=== PATIENT | male | born 1970 | race Hispanic/Latino ===

== ENCOUNTER 2017-12-29 12:50 | Observation (INO) | payer BC, OTHER ==
[2017-12-29] MEDS ORDERED: Sodium Chloride 0.9% 1,000 ML IV ONE (14:14)
[2017-12-29] MEDS ORDERED: Sodium Chloride 0.9% 1,000 ML ONE (14:22)
[2017-12-29 14:28] LABS: BASO % 0.5 % (0.0-2.0); EOS # 0.2 K/uL (0.0-0.7); EOS % 2.7 % (0.0-4.0); HEMOGLOBIN 15.3 g/dL (12.0-18.0); LYMPH # 1.4 K/uL (1.0-4.3); LYMPH % 23.3 % (20.0-40.0); MEAN CELL VOLUME 83.9 fL (80.0-94.0); MEAN CORPUSCULAR HEMOGLOBIN 29.6 pg (27.0-31.0); MEAN CORPUSCULAR HGB CONC 35.3 g/dL (33.0-37.0); MEAN PLATELET VOLUME 7.9 fL (7.2-11.7); MONO # 0.5 K/uL (0.0-0.8); MONO % 7.9 % (0.0-10.0); NEUT # 4.1 K/uL (1.8-7.0); NEUT % 65.6 % (50.0-75.0); RBC 5.18 Mil/uL (4.40-5.90); RED CELL DISTRIBUTION WIDTH 12.1 % (11.5-14.5); WHITE BLOOD COUNT 6.2 K/uL (4.8-10.8)
[2017-12-29 14:32] LABS: PROTHROMBIN TIME 11.2 SECONDS (9.7-12.2)
--- NOTE | 2017-12-29 14:33 | C.PDOC ---
History Of Present Illness 47 y/o male, w/PMhx of acid reflux, presents to the ER complaining of abdominal pain which has been present since last night. Patient states that the pain is localized to the RLQ. Patient reports that he was seen in a urgent care center in the morning and he was sent to the ER for evaluation. Denies having fever, chills, nausea, vomiting, dysuria, and hematuria.Of note, patient states that he does not want any medications for pain. Time Seen by Provider: 12/29/17 14:02 Chief Complaint (Nursing): Abdominal Pain History Per: Patient History/Exam Limitations: no limitations Onset/Duration Of Symptoms: Days Current Symptoms Are (Timing): Still Present Severity: Moderate Location Of Pain/Discomfort: RLQ Past Medical History Reviewed: Historical Data, Nursing Documentation, Vital Signs Vital Signs: Last Vital Signs Temp 98.2 F 12/29/17 13:21 Pulse 77 12/29/17 13:21 Resp 20 12/29/17 13:21 BP 116/71 12/29/17 13:21 Pulse Ox 99 12/29/17 13:21 - Medical History PMH: GERD Surgical History: No Surg Hx Family History: States: No Known Family Hx - Social History Hx Alcohol Use: Yes Hx Substance Use: No - Immunization History Hx Tetanus Toxoid Vaccination: No Hx Influenza Vaccination: No Hx Pneumococcal Vaccination: No Review Of Systems Except As Marked, All Systems Reviewed And Found Negative. Constitutional: Negative for: Fever, Chills Gastrointestinal: Positive for: Abdominal Pain. Negative for: Nausea, Vomiting, Diarrhea Genitourinary: Negative for: Dysuria, Hematuria Physical Exam - Physical Exam Appears: Non-toxic, No Acute Distress Skin: Normal Color, Warm, Dry Head: Atraumatic, Normacephalic Eye(s): bilateral: Normal Inspection Nose: Normal Oral Mucosa: Moist Neck: Supple Chest: Symmetrical Cardiovascular: Rhythm Regular Respiratory: Normal Breath Sounds, No Rales, No Rhonchi, No Wheezing Gastrointestinal/Abdominal: Soft, Tenderness (mild RLQ tenderness), No Guarding, No Rebound Neurological/Psych: Oriented x3, Normal Speech ED Course And Treatment - Laboratory Results Result Diagrams: 12/29/17 14:20 12/29/17 14:20 O2 Sat by Pulse Oximetry: 99 (RA) Pulse Ox Interpretation: Normal - CT Scan/US CT-Abd & Pelv. Other Rad Studies (CT/US): Read By Radiologist, Radiology Report Reviewed CT/US Interpretation: Date of service: 12/29/2017. PROCEDURE: CT Abdomen and Pelvis with contrast. HISTORY: rlq pain. COMPARISON: Images from CT of the abdomen and pelvis with IV contrast performed 03/22/11. TECHNIQUE: Contrast dose: 100 cc Visipaque 320. Radiation dose: Total exam DLP = 751.92 mGy-cm. This CT exam was performed using one or more of the following dose reduction techniques: Automated exposure control, adjustment of the mA and/or kV according to patient size, and/or use of iterative reconstruction technique. FINDINGS: LOWER THORAX: Mild atelectasis/infiltrate, lingula. Subsegmental atelectasis by lateral lower lobes. No visible pleural effusion or pneumothorax. LIVER: Unremarkable. GALLBLADDER AND BILE DUCTS: Unremarkable. PANCREAS: Unremarkable. SPLEEN: Unremarkable. ADRENALS: Unremarkable. KIDNEYS AND URETERS: The kidneys enhance symmetrically. No hydronephrosis or obstructing calculus identified. VASCULATURE: No aortic aneurysm. No atherosclerotic clark cification or mural plaque present. BOWEL: Stomach is nondistended. Lack of oral contrast limits evaluation for bowel pathology. Bowel loops appear within normal limits of caliber without evidence of obstruction. Moderate constipation. APPENDIX: The appendix is not identified. No secondary signs of acute appendicitis. PERITONEUM: No significant free fluid. No definite free air. LYMPH NODES: No bulky adenopathy identified. BLADDER: Urinary bladder appears distended. Otherwise unremarkable. REPRODUCTIVE: Unremarkable. BONES: Degenerative changes of the spine. OTHER FINDINGS: None. IMPRESSION: The appendix is not identified. No secondary signs of acute appendicitis iden tified. Correlate clinically. Moderate constipation. Distended urinary bladder, otherwise unremarkable. Mild atelectasis/infiltrate, lingula. Subsegmental atelectasis by lateral lower lobes. Medical Decision Making Medical Decision Making: ro appendciits Plan: --Labs --UA --CT-Abd & Pelv. --IV Fluids Patient states that he does not want any medications for pain. ct cannot visualize appendix case discussed with dr pedersen. accpets for obs. Disposition - Disposition Disposition: HOSPITALIZED Disposition Time: 18:00 Condition: STABLE - Clinical Impression Clinical Impression: Abdominal pain - Scribe Statement The provider has reviewed the documentation as recorded by the Scribe Summen Justin Provider Attestation: All medical record entries made by the Mojgan were at my direction and personally dictated by me. I have reviewed the chart and agree that the record accurately reflects my personal performance of the history, physical exam, medical decision making, and the department course for this patient. I have also personally directed, reviewed, and agree with the discharge instructions and disposition. Decision To Admit - Pt Status Changed To: Hospital Disposition Of: Observation - . Bed Request Type: Regular Admitting Physician: Maxim Houser Patient Diagnosis: Abdominal pain
[2017-12-29 14:36] LABS: SQUAMOUS EPITHIAL < 1 /hpf (0-5); URINE BACTERIA RARE (<OCC); URINE BILIRUBIN NEGATIVE (NEGATIVE); URINE BLOOD NEGATIVE (NEGATIVE); URINE CLARITY Hazy (Clear); URINE COLOR Yellow (YELLOW); URINE GLUCOSE (UA) NORMAL (Normal); URINE LEUKOCYTE ESTERASE NEG Leu/uL (Negative); URINE PROTEIN 1+ mg/dL (NEGATIVE); URINE UROBILINOGEN NORMAL mg/dL (0.2-1.0)
[2017-12-29 14:49] LABS: ALB/GLOB RATIO 1.7 (1.0-2.1); ALBUMIN 4.4 g/dL (3.5-5.0); ALT/SGPT 22 U/L (21-72); AST/SGOT 23 U/L (17-59); BLOOD UREA NITROGEN 21 mg/dL (9-20); CALCIUM 8.7 mg/dl (8.6-10.4); GFR NON-AFRICAN AMERICAN > 60; LIPASE 64 U/L (23-300)
[2017-12-29] MEDS ORDERED: Iodixanol 320 MG/ML 100 ML BOTTLE IV ONE (16:02)
--- NOTE | 2017-12-29 16:42 | CT ---
Date of service: 12/29/2017 PROCEDURE: CT Abdomen and Pelvis with contrast HISTORY: rlq pain COMPARISON: Images from CT of the abdomen and pelvis with IV contrast performed 03/22/11 TECHNIQUE: Contrast dose: 100 cc Visipaque 320 Radiation dose: Total exam DLP = 751.92 mGy-cm. This CT exam was performed using one or more of the following dose reduction techniques: Automated exposure control, adjustment of the mA and/or kV according to patient size, and/or use of iterative reconstruction technique. FINDINGS: LOWER THORAX: Mild atelectasis/infiltrate, lingula. Subsegmental atelectasis by lateral lower lobes. No visible pleural effusion or pneumothorax. LIVER: Unremarkable. GALLBLADDER AND BILE DUCTS: Unremarkable. PANCREAS: Unremarkable. SPLEEN: Unremarkable. ADRENALS: Unremarkable. KIDNEYS AND URETERS: The kidneys enhance symmetrically. No hydronephrosis or obstructing calculus identified. VASCULATURE: No aortic aneurysm. No atherosclerotic calcification or mural plaque present. BOWEL: Stomach is nondistended. Lack of oral contrast limits evaluation for bowel pathology. Bowel loops appear within normal limits of caliber without evidence of obstruction. Moderate constipation. APPENDIX: The appendix is not identified. No secondary signs of acute appendicitis. PERITONEUM: No significant free fluid. No definite free air. LYMPH NODES: No bulky adenopathy identified. BLADDER: Urinary bladder appears distended. Otherwise unremarkable. REPRODUCTIVE: Unremarkable. BONES: Degenerative changes of the spine. OTHER FINDINGS: None. IMPRESSION: The appendix is not identified. No secondary signs of acute appendicitis identified. Correlate clinically. Moderate constipation. Distended urinary bladder, otherwise unremarkable. Mild atelectasis/infiltrate, lingula. Subsegmental atelectasis by lateral lower lobes.
--- NOTE | 2017-12-29 18:38 | CP.PCM.HP ---
History of Present Illness - History of Present Illness History of Present Illness: GENERAL SURGERY HISTORY AND PHYSICAL FOR DR. TORRES Manoj is a 47 y/o male with PMH of GERD and migraines presenting to the ED w ith a RLQ pain that started last night. The pain is constant and does not radiate. The pain is worse with movement, especially sitting up. The pain improves when the pt is supine. He has not taken anything for the pain. Pt has nausea but denies fevers, chills, headaches, chest pain, SOB, constipation, diarrhea, lower leg edema, bloody stools. Pt's last bowel movement this morning was normal. He ate pancakes for breakfast this morning and currently has a decreased appetite but is requesting coffee. 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 Present on Admission - Present on Admission Any Indicators Present on Admission: No Review of Systems - Review of Systems All systems: reviewed and no additional remarkable complaints except (as per HPI) Past Patient History - Past Social History Smoking Status: Never Smoked - CARDIAC Other/Comment: Cardiac cath 5-6 years ago - PSYCHIATRIC Hx Substance Use: No - SURGICAL HISTORY Hx Surgeries: No Meds Allergies/Adverse Reactions: Allergies Allergy/AdvReac Type Severity Reaction Status Date / Time peanut Allergy Verified 12/29/17 13:25 TREE NUTS Allergy Uncoded 08/18/14 14:38 Physical Exam - Constitutional Appears: Well, Non-toxic, No Acute Distress - Head Exam Head Exam: ATRAUMATIC, NORMAL INSPECTION, NORMOCEPHALIC - Eye Exam Eye Exam: EOMI, Normal appearance, PERRL Pupil Exam: NORMAL ACCOMODATION, PERRL - ENT Exam ENT Exam: Normal Exam, Normal Oropharynx - Respiratory Exam Respiratory Exam: Clear to Auscultation Bilateral, NORMAL BREATHING PATTERN. absent: Rales, Rhonchi, Wheezes, Respiratory Distress, Stridor - Cardiovascular Exam Cardiovascular Exam: REGULAR RHYTHM, +S1, +S2. absent: Tachycardia - GI/Abdominal Exam GI & Abdominal Exam: Hernia (Soft nontender easily reducible umbilical hernia), Normal Bowel Sounds, Soft, Tenderness (very mild tenderness in RLQ to deep palpation only). absent: Diminished Bowel Sounds, Distended, Firm, Guarding, Rebound, Rigid Additional comments: Negative Rovsing's and McBurney's - Extremities Exam Extremities exam: Positive for: normal inspection. Negative for: pedal edema - Back Exam Back exam: absent: CVA tenderness (L), CVA tenderness (R) - Neurological Exam Neurological exam: Alert, CN II-XII Intact, Oriented x3 - Psychiatric Exam Psychiatric exam: Normal Affect, Normal Mood - Skin Skin Exam: Dry, Normal Color, Warm Results - Vital Signs Recent Vital Signs: Last Vital Signs Temp 97.7 F 12/29/17 16:59 Pulse 60 12/29/17 16:59 Resp 15 12/29/17 16:59 BP 120/77 12/29/17 16:59 Pulse Ox 100 12/29/17 16:59 - Labs Result Diagrams: 12/29/17 14:20 12/29/17 14:20 Labs: Laboratory Results - last 24 hr 12/29/17 12/29/17 12/29/17 14:17 14:20 14:20 WBC 6.2 RBC 5.18 Hgb 15.3 Hct 43.4 MCV 83.9 MCH 29.6 MCHC 35.3 RDW 12.1 Plt Count 269 MPV 7.9 Neut % (Auto) 65.6 Lymph % (Auto) 23.3 [place] % (Auto) 7.9 Eos % (Auto) 2.7 Baso % (Auto) 0.5 Neut # (Auto) 4.1 Lymph # (Auto) 1.4 [place] # (Auto) 0.5 Eos # (Auto) 0.2 Baso # (Auto) 0.0 PT INR APTT Sodium 139 Potassium 4.2 Chloride 102 Carbon Dioxide 29 Anion Gap 12 BUN 21 H Creatinine 1.0 Est GFR ( Amer) > 60 Est GFR (Non-Af Amer) > 60 Random Glucose 100 Calcium 8.7 Total Bilirubin 0.8 AST 23 ALT 22 Alkaline Phosphatase 59 Total Protein 7.0 Albumin 4.4 Globulin 2.6 Albumin/Globulin Ratio 1.7 Lipase 64 Urine Color Yellow Urine Clarity Hazy Urine pH 7.0 Ur Specific [place] 1.010 Urine Protein 1+ H Urine Glucose (UA) Normal Urine Ketones Negative Urine Blood Negative Urine Nitrate Negative Urine Bilirubin Negative Urine Urobilinogen Normal Ur Leukocyte Esterase Neg Urine WBC (Auto) 1 Urine RBC (Auto) 2 Ur Squamous Epith Cells < 1 Urine Bacteria Rare 12/29/17 14:20 WBC RBC Hgb Hct MCV MCH MCHC RDW Plt Count MPV Neut % (Auto) Lymph % (Auto) [place] % (Auto) Eos % (Auto) Baso % (Auto) Neut # (Auto) Lymph # (Auto) [place] # (Auto) Eos # (Auto) Baso # (Auto) PT 11.2 INR 1.0 APTT 33 Sodium Potassium Chloride Carbon Dioxide Anion Gap BUN Creatinine Est GFR ( Amer) Est GFR (Non-Af Amer) Random Glucose Calcium Total Bilirubin AST ALT Alkaline Phosphatase Total Protein Albumin Globulin Albumin/Globulin Ratio Lipase Urine Color Urine Clarity Urine pH Ur Specific [place] Urine Protein Urine Glucose (UA) Urine Ketones Urine Blood Urine Nitrate Urine Bilirubin Urine Urobilinogen Ur Leukocyte Esterase Urine WBC (Auto) Urine RBC (Auto) Ur Squamous Epith Cells Urine Bacteria Assessment & Plan - Assessment and Plan (Free Text) Assessment: 47 y/o male with PMH of GERD who presented with mild RLQ abdominal pain, unl ikely appendicitis. CT: appendix is not identified. No secondary signs of acute appendicitis ident ified. Moderate constipation. Unlikely appedicitis with Grace Score of 3. Plan: - Admit to observation - Recheck CBC in AM - Serial Abdominal exams - No abx necessary at this time - Regular diet tonight - Discussed plan with Dr. Corrina Montano PGY-4
[2017-12-29 21:13] VITALS: RESP 20
--- NOTE | 2017-12-29 23:49 | CP.PCM.CON ---
Past Patient History - Past Medical History & Family History Past Medical History?: No - Past Social History Smoking Status: Never Smoked - CARDIAC Other/Comment: Cardiac cath 5-6 years ago - MUSCULOSKELETAL/RHEUMATOLOGICAL Hx Falls: No - PSYCHIATRIC Hx Substance Use: Yes (marijuana long time ago) - SURGICAL HISTORY Hx Surgeries: No Meds Allergies/Adverse Reactions: Allergies Allergy/AdvReac Type Severity Reaction Status Date / Time peanut Allergy Verified 12/29/17 13:25 TREE NUTS Allergy Uncoded 08/18/14 14:38 - Medications Medications: Current Medications Acetaminophen (Tylenol 325mg Tab) 650 mg PO Q4 PRN PRN Reason: Pain, moderate (4-7) Ondansetron HCl (Zofran Inj) 4 mg IVP Q4 PRN PRN Reason: Nausea/Vomiting Pantoprazole Sodium (Protonix Inj) 40 mg IVP DAILY [facility] Results - Vital Signs Recent Vital Signs: Last Vital Signs Temp 98 F 12/29/17 20:30 Pulse 66 12/29/17 20:30 Resp 20 12/29/17 20:30 BP 122/79 12/29/17 20:30 Pulse Ox 98 12/29/17 20:30 - Labs Result Diagrams: 12/29/17 14:20 12/29/17 14:20 Labs: Laboratory Results - last 24 hr 12/29/17 12/29/17 12/29/17 14:17 14:20 14:20 WBC 6.2 RBC 5.18 Hgb 15.3 Hct 43.4 MCV 83.9 MCH 29.6 MCHC 35.3 RDW 12.1 Plt Count 269 MPV 7.9 Neut % (Auto) 65.6 Lymph % (Auto) 23.3 [place] % (Auto) 7.9 Eos % (Auto) 2.7 Baso % (Auto) 0.5 Neut # (Auto) 4.1 Lymph # (Auto) 1.4 [place] # (Auto) 0.5 Eos # (Auto) 0.2 Baso # (Auto) 0.0 PT INR APTT Sodium 139 Potassium 4.2 Chloride 102 Carbon Dioxide 29 Anion Gap 12 BUN 21 H Creatinine 1.0 Est GFR ( Amer) > 60 Est GFR (Non-Af Amer) > 60 Random Glucose 100 Calcium 8.7 Total Bilirubin 0.8 AST 23 ALT 22 Alkaline Phosphatase 59 Total Protein 7.0 Albumin 4.4 Globulin 2.6 Albumin/Globulin Ratio 1.7 Lipase 64 Urine Color Yellow Urine Clarity Hazy Urine pH 7.0 Ur Specific [place] 1.010 Urine Protein 1+ H Urine Glucose (UA) Normal Urine Ketones Negative Urine Blood Negative Urine Nitrate Negative Urine Bilirubin Negative Urine Urobilinogen Normal Ur Leukocyte Esterase Neg Urine WBC (Auto) 1 Urine RBC (Auto) 2 Ur Squamous Epith Cells < 1 Urine Bacteria Rare 12/29/17 14:20 WBC RBC Hgb Hct MCV MCH MCHC RDW Plt Count MPV Neut % (Auto) Lymph % (Auto) [place] % (Auto) Eos % (Auto) Baso % (Auto) Neut # (Auto) Lymph # (Auto) [place] # (Auto) Eos # (Auto) Baso # (Auto) PT 11.2 INR 1.0 APTT 33 Sodium Potassium Chloride Carbon Dioxide Anion Gap BUN Creatinine Est GFR ( Amer) Est GFR (Non-Af Amer) Random Glucose Calcium Total Bilirubin AST ALT Alkaline Phosphatase Total Protein Albumin Globulin Albumin/Globulin Ratio Lipase Urine Color Urine Clarity Urine pH Ur Specific [place] Urine Protein Urine Glucose (UA) Urine Ketones Urine Blood Urine Nitrate Urine Bilirubin Urine Urobilinogen Ur Leukocyte Esterase Urine WBC (Auto) Urine RBC (Auto) Ur Squamous Epith Cells Urine Bacteria
[2017-12-30 08:33] LABS: EOS # 0.2 K/uL (0.0-0.7); LYMPH # 1.3 K/uL (1.0-4.3); LYMPH % 24.4 % (20.0-40.0); MEAN CORPUSCULAR HEMOGLOBIN 29.9 pg (27.0-31.0); MEAN CORPUSCULAR HGB CONC 35.7 g/dL (33.0-37.0); MONO # 0.4 K/uL (0.0-0.8); MONO % 6.6 % (0.0-10.0); NEUT % 64.4 % (50.0-75.0); WHITE BLOOD COUNT 5.4 K/uL (4.8-10.8)
[2017-12-30 09:00] LABS: BASO % 0.7 % (0.0-2.0); EOS % 3.9 % (0.0-4.0); MEAN CELL VOLUME 83.6 fL (80.0-94.0); NEUT # 3.5 K/uL (1.8-7.0); NRBC % 0.1 % (0.0-2.0); RBC 5.02 Mil/uL (4.40-5.90); RED CELL DISTRIBUTION WIDTH 12.2 % (11.5-14.5)
[2017-12-30] MEDS ORDERED: metroNIDAZOLE IV 500 mg/100 ml 500 MG/100 ML BAG IVPB SCH (11:00)
[2017-12-30] MEDS ORDERED: Iohexol 240 (50 ml) PO ONE (11:00)
[2017-12-30] MEDS: Piperacill/Tazo 3.375gm in Dex 3.375 GM/50 ML BAG IVPB SCH ×3 (12:29→23:09)
[2017-12-30] MEDS: metroNIDAZOLE IV 500 mg/100 ml 500 MG/100 ML BAG IVPB SCH ×2 (12:55→21:46)
[2017-12-30] MEDS ORDERED: Iohexol 300 100 ML IJ ONE (17:40)
--- NOTE | 2017-12-30 17:50 | CP.PCM.CON ---
History of Present Illness - History of Present Illness History of Present Illness: This is a 47 year old man admitted 12/29/2017 with abdominal pain. Patient has a history of recurrent RLQ pain which was most recently worked up in 2015. CT scan 04/05/2015 showed a small hiatal hernia and a small,fat-containing umbilical hernia. UGI series was normal. The last colonoscopy was 04/11/2012 and showed diverticulosis of the right colon and internal hemorrhoids. The last EGD 02/02/2015 showed hiatal hernia and non-erosive gastritis. Patient noted sudden onset of RLQ/right flank pain on the day prior to a dmission. The pain was described as sharp and was constant, unrelated to eating or to defecating. It seemed worse with: sitting up, taking a deep breath, and walking. He was nauseated, but he denies having vomiting, fever, constipation, diarrhea, rectal bleeding. A CT scan was done in the ER and showed no acute pathology. Review of Systems - Review of Systems All systems: reviewed and no additional remarkable complaints except - Constitutional Constitutional: absent: Chills, Fever, Headache - Cardiovascular Cardiovascular: absent: Chest Pain, Dyspnea - Respiratory Respiratory: absent: Dyspnea - Gastrointestinal Gastrointestinal: Abdominal Pain, Nausea. absent: Constipation, Diarrhea, Dysphagia, Heartburn, Hematochezia, Vomiting - Genitourinary Genitourinary: absent: Dysuria, Hematuria Past Patient History - Past Medical History & Family History Past Medical History?: No - Past Social History Smoking Status: Never Smoked - CARDIAC Other/Comment: Cardiac cath 5-6 years ago - MUSCULOSKELETAL/RHEUMATOLOGICAL Hx Falls: No - PSYCHIATRIC Hx Substance Use: Yes (marijuana long time ago) - SURGICAL HISTORY Hx Surgeries: No Meds Allergies/Adverse Reactions: Allergies Allergy/AdvReac Type Severity Reaction Status Date / Time peanut Allergy Verified 12/29/17 13:25 TREE NUTS Allergy Uncoded 08/18/14 14:38 - Medications Medications: Current Medications Acetaminophen (Tylenol 325mg Tab) 650 mg PO Q4 PRN PRN Reason: Pain, moderate (4-7) Docusate Sodium (Colace) 100 mg PO BID [facility] Last Admin: 12/30/17 10:12 Dose: Not Given Heparin Sodium (Porcine) (Heparin) 5,000 units SC Q12 [facility] Last Admin: 12/30/17 10:13 Dose: 5,000 units Piperacillin Sod/Tazobactam Sod (Zosyn 3.375 Gm Iv Premix) 3.375 gm in 50 mls @ 100 mls/hr IVPB Q6H [facility]; Protocol Last Admin: 12/30/17 16:38 Dose: 100 mls/hr Metronidazole (Flagyl) 500 mg in 100 mls @ 100 mls/hr IVPB Q8H [facility]; Protocol Last Admin: 12/30/17 12:55 Dose: 100 mls/hr Influenza Virus Vaccine (Fluzone Quad [id number]) 60 mcg IM .ONCE ONE Stop: 12/31/17 10:01 Ondansetron HCl (Zofran Inj) 4 mg IVP Q4 PRN PRN Reason: Nausea/Vomiting Pantoprazole Sodium (Protonix Inj) 40 mg IVP DAILY [facility] Last Admin: 12/30/17 10:13 Dose: 40 mg Pneumococcal Polyvalent Vaccine (Pneumovax 23 Vaccine) 0.5 ml IM .ONCE ONE Stop: 12/31/17 10:01 Physical Exam - Constitutional Appears: No Acute Distress - Head Exam Head Exam: ATRAUMATIC, NORMOCEPHALIC - Eye Exam Eye Exam: EOMI, PERRL - Neck Exam Neck exam: Negative for: Lymphadenopathy, Thyromegaly - Respiratory Exam Respiratory Exam: NORMAL BREATHING PATTERN. absent: Rales, Rhonchi, Wheezes - Cardiovascular Exam Cardiovascular Exam: REGULAR RHYTHM, +S1, +S2. absent: Gallop, Rubs, Systolic Murmur - GI/Abdominal Exam GI & Abdominal Exam: Normal Bowel Sounds, Soft. absent: Mass, Organomegaly, Tenderness - Rectal Exam Rectal Exam: Deferred - Extremities Exam Extremities exam: Negative for: calf tenderness, pedal edema Results - Vital Signs Recent Vital Signs: Last Vital Signs Temp 98 F 12/30/17 16:00 Pulse 68 12/30/17 16:00 Resp 20 12/30/17 16:00 BP 110/73 12/30/17 16:00 Pulse Ox 95 12/30/17 16:00 - Labs Result Diagrams: 12/30/17 08:24 12/29/17 14:20 Labs: Laboratory Results - last 24 hr 12/30/17 08:24 WBC 5.4 RBC 5.02 Hgb 15.0 Hct 42.0 MCV 83.6 MCH 29.9 MCHC 35.7 RDW 12.2 Plt Count 220 MPV 8.0 Neut % (Auto) 64.4 Lymph % (Auto) 24.4 [place] % (Auto) 6.6 Eos % (Auto) 3.9 Baso % (Auto) 0.7 Neut # (Auto) 3.5 Lymph # (Auto) 1.3 [place] # (Auto) 0.4 Eos # (Auto) 0.2 Baso # (Auto) 0.0 Assessment & Plan (1) RLQ abdominal pain Assessment and Plan: Patient has pain in RLQ which is vague but does seem positional. CT scan was negative. Will order MRI and a trial of NSAIDs. Status: Acute
--- NOTE | 2017-12-31 01:00 | HP ---
CHIEF COMPLAINT: Abdominal pain. HISTORY OF PRESENT ILLNESS: This is a 47-year-old white male with a history of gastroesophageal reflux who is compliant with diet, medication and followup. He developed right lower quadrant abdominal pain since yesterday. According to the patient, pain is localized to the right lower quadrant. Along with that, he denies any nausea or vomiting. He denies any fever, chills or rigors. He denies any history of dysuria or hematuria. He denies any history of change in color of eyes, urine or feces. No history of trauma to right side of the abdomen. There is no positional component to this pain. Pain does not get worse by moving. There is no history of dysuria, hematuria or pyuria. The patient denies any sneezing, itchy eyes, or itchy nose. There is no history of trauma, fall or loss of consciousness. PAST MEDICAL HISTORY: Acid reflux. SOCIAL HISTORY: Nonsmoker. Social [employer] user. CURRENT MEDICATIONS: Prilosec. PHYSICAL EXAMINATION: GENERAL: Middle-aged male, in no acute distress. VITAL SIGNS: Blood pressure 116/71, pulse 77, respiratory rate 20, and temperature 98.2. SKIN: Normal. No rashes. No bruits. No purpura. No petechiae. HEENT EXAM: Atraumatic and normocephalic. Negative pallor. Negative jaundice. Extraocular movements are intact. NECK: Supple. No JVD. No lymph node. No thyromegaly. CHEST WALL: Bilateral symmetrical expansion. LUNGS: Clear. No rales. No rhonchi. CARDIOVASCULAR SYSTEM: PMI in the fifth intercostal space. S1 and S2 are regular. No heave noted. ABDOMEN: Soft and nontender. Bowel sounds are positive. There is no guarding, no rigidity, no rebound tenderness in the right lower quadrant. No masses. RECTAL: Negative. GENITAL: Normal. EXTREMITIES: No clubbing, cyanosis or edema. CENTRAL NERVOUS SYSTEM: Awake, alert and oriented x3. ASSESSMENT: Right lower quadrant abdominal pain unlikely to be urinary tract infection, less likely to be appendicitis due to lack of white blood cells and also negative CT abdomen finding. PLAN: Admit. Detailed orders written. Seen and examined. Slim Mena MD [facility] # [id number]
[2017-12-31] MEDS: metroNIDAZOLE IV 500 mg/100 ml 500 MG/100 ML BAG IVPB SCH ×2 (03:30→12:16)
[2017-12-31] MEDS: Piperacill/Tazo 3.375gm in Dex 3.375 GM/50 ML BAG IVPB SCH ×3 (04:45→16:07)
--- NOTE | 2017-12-31 06:21 | CP.PCM.PN ---
Subjective - Date & Time of Evaluation Date of Evaluation: 12/30/17 - Subjective Subjective: dictated Objective - Vital Signs/Intake and Output Vital Signs (last 24 hours): Temp Pulse Resp BP Pulse Ox 98.1 F 66 20 108/68 96 12/31/17 00:00 12/31/17 00:00 12/31/17 00:00 12/31/17 00:00 12/31/17 00:00 Intake and Output: 12/30/17 12/31/17 18:59 06:59 Intake Total 1630 600 Balance 1630 600 - Medications Medications: Current Medications Acetaminophen (Tylenol 325mg Tab) 650 mg PO Q4 PRN PRN Reason: Pain, moderate (4-7) Docusate Sodium (Colace) 100 mg PO BID [facility] Last Admin: 12/30/17 21:47 Dose: Not Given Heparin Sodium (Porcine) (Heparin) 5,000 units SC Q12 [facility] Last Admin: 12/30/17 21:47 Dose: Not Given Piperacillin Sod/Tazobactam Sod (Zosyn 3.375 Gm Iv Premix) 3.375 gm in 50 mls @ 100 mls/hr IVPB Q6H [facility]; Protocol Last Admin: 12/31/17 04:45 Dose: 100 mls/hr Metronidazole (Flagyl) 500 mg in 100 mls @ 100 mls/hr IVPB Q8H [facility]; Protocol Last Admin: 12/31/17 03:30 Dose: 100 mls/hr Ibuprofen (Motrin Tab) 600 mg PO TID [facility] Last Admin: 12/30/17 21:47 Dose: Not Given Influenza Virus Vaccine (Fluzone Quad [id number]) 60 mcg IM .ONCE ONE Stop: 12/31/17 10:01 Ondansetron HCl (Zofran Inj) 4 mg IVP Q4 PRN PRN Reason: Nausea/Vomiting Pantoprazole Sodium (Protonix Inj) 40 mg IVP DAILY [facility] Last Admin: 12/30/17 10:13 Dose: 40 mg Pneumococcal Polyvalent Vaccine (Pneumovax 23 Vaccine) 0.5 ml IM .ONCE ONE Stop: 12/31/17 10:01 - Labs Labs: 12/30/17 08:24 12/29/17 14:20 PT 11.2 SECONDS (9.7-12.2) 12/29/17 14:20 INR 1.0 12/29/17 14:20 APTT 33 SECONDS (21-34) 12/29/17 14:20
[2017-12-31] MEDS ORDERED: Influenza Vaccine 60 MCG/0.5 ML SYR (3 yr & up) IM ONE (10:00)
[2017-12-31] MEDS ORDERED: Pneumococcal 23-Valent Vaccine IM ONE (10:00)
--- NOTE | 2017-12-31 11:23 | CT ---
PROCEDURE: CT Abdomen and Pelvis with oral and IV contrast. HISTORY: r/o appendicitis COMPARISON: CT abdomen and pelvis with IV contrast performed 12/29/17. TECHNIQUE: Contiguous axial images of the abdomen and pelvis. Oral and IV contrast was administered. Coronal and Sagittal reformats generated and reviewed. Contrast dose: 100 mL Omnipaque 300 IV Radiation dose: Total exam DLP = 785.53 mGy-cm. This CT exam was performed using one or more of the following dose reduction techniques: Automated exposure control, adjustment of the mA and/or kV according to patient size, and/or use of iterative reconstruction technique. FINDINGS: LOWER THORAX: Minimal lingular atelectasis. No visible pleural effusion or pneumothorax. LIVER: Unremarkable. GALLBLADDER AND BILE DUCTS: Unremarkable. PANCREAS: Unremarkable. SPLEEN: Unremarkable. ADRENALS: Unremarkable. KIDNEYS AND URETERS: The kidneys enhance symmetrically. No hydronephrosis or obstructing renal calculus. BLADDER: The urinary bladder appears unremarkable. REPRODUCTIVE: Unremarkable. APPENDIX: The appendix appears within normal limits of caliber. No secondary signs of acute appendicitis. BOWEL: The stomach is nondistended. The bowel loops appear within normal limits of caliber without evidence of intestinal obstruction. Diverticulosis without CT evidence of acute diverticulitis. Circumferential thickening of the rectosigmoid colon can be seen in setting of chronic diverticulosis. PERITONEUM: No significant free fluid. No definite free air. LYMPH NODES: No bulky lymphadenopathy identified. VASCULATURE: No aortic aneurysm. No atherosclerotic calcification or mural plaque present. BONES: Degenerative changes of the spine. OTHER FINDINGS: None. IMPRESSION: The appendix appears within normal limits of caliber. No secondary signs of acute appendicitis. Diverticulosis without CT evidence of acute diverticulitis. Circumferential thickening of the rectosigmoid colon can be seen in setting of chronic diverticulosis. Preliminary impression was provided by [employer]
--- NOTE | 2017-12-31 12:01 | PN ---
DATE: 12/31/2017 SUBJECTIVE: The patient still has abdominal pain. CAT scan is negative. Physical exam is negative. He is tolerating diet with no nausea, vomiting, or diarrhea. PHYSICAL EXAMINATION: VITAL SIGNS: Blood pressure 108/68, pulse 66, respiratory rate 20, and temperature 96.1. LUNGS: Clear. CARDIOVASCULAR SYSTEM: S1 and S2 regular. ABDOMEN: Soft and nontender. ASSESSMENT AND PLAN: Abdominal pain, etiology unclear. It could be musculoskeletal and in view of the negative symptoms and negative pathology, we will plan to monitor the patient. Slim Mena MD
--- NOTE | 2017-12-31 16:57 | MRI ---
Date of service: 12/31/2017 PROCEDURE: MRI pelvis with and without gadolinium HISTORY: RLQ pain COMPARISON: CT abdomen/pelvis 12/30/2017 TECHNIQUE: Multiplanar, multi sequence imaging of the pelvis was performed both with and without intravenous gadolinium administration. FINDINGS: No pelvic mass or fluid collection is identified. Diverticulosis of the sigmoid colon is noted, as on CT examination. No other gross bowel abnormality is appreciated. There is no pelvic lymphadenopathy seen. The urinary bladder is nondistended. The prostate and seminal vesicles are unremarkable. The urethra is normal in appearance. There is no ascites. The marrow signal of the visualized osseous structures is unremarkable. IMPRESSION: Sigmoid diverticulosis without evidence of diverticulitis. Otherwise unremarkable examination.
[2017-12-31 17:06] VITALS: BP 106/70; PULSE 75; TEMP 98.2; O2SAT 95
--- NOTE | 2017-12-31 17:10 | CP.PCM.PN ---
Subjective - Date & Time of Evaluation Date of Evaluation: 12/31/17 Time of Evaluation: 17:08 - Subjective Subjective: Patient is now on a regular diet. He states that the RLQ pain has improved slightly. He denies having nausea and vomiting. He has not had a bowel movement today. Objective - Vital Signs/Intake and Output Vital Signs (last 24 hours): Temp Pulse Resp BP Pulse Ox 98.2 F 75 20 106/70 95 12/31/17 16:00 12/31/17 16:00 12/31/17 16:00 12/31/17 16:00 12/31/17 16:00 Intake and Output: 12/31/17 12/31/17 06:59 18:59 Intake Total 950 650 Balance 950 650 - Medications Medications: Current Medications Acetaminophen (Tylenol 325mg Tab) 650 mg PO Q4 PRN PRN Reason: Pain, moderate (4-7) Docusate Sodium (Colace) 100 mg PO BID [facility] Last Admin: 12/31/17 10:05 Dose: Not Given Heparin Sodium (Porcine) (Heparin) 5,000 units SC Q12 [facility] Last Admin: 12/31/17 10:05 Dose: Not Given Piperacillin Sod/Tazobactam Sod (Zosyn 3.375 Gm Iv Premix) 3.375 gm in 50 mls @ 100 mls/hr IVPB Q6H [facility]; Protocol Last Admin: 12/31/17 16:07 Dose: 100 mls/hr Metronidazole (Flagyl) 500 mg in 100 mls @ 100 mls/hr IVPB Q8H [facility]; Protocol Last Admin: 12/31/17 12:16 Dose: 100 mls/hr Ibuprofen (Motrin Tab) 600 mg PO TID [facility] Last Admin: 12/31/17 13:43 Dose: Not Given Ondansetron HCl (Zofran Inj) 4 mg IVP Q4 PRN PRN Reason: Nausea/Vomiting Pantoprazole Sodium (Protonix Inj) 40 mg IVP DAILY [facility] Last Admin: 12/31/17 09:57 Dose: 40 mg - Labs Labs: 12/30/17 08:24 12/29/17 14:20 PT 11.2 SECONDS (9.7-12.2) 12/29/17 14:20 INR 1.0 12/29/17 14:20 APTT 33 SECONDS (21-34) 12/29/17 14:20 - Constitutional Appears: No Acute Distress - Head Exam Head Exam: ATRAUMATIC, NORMOCEPHALIC - Eye Exam Eye Exam: EOMI, PERRL - Neck Exam Neck Exam: absent: Lymphadenopathy, Thyromegaly - Respiratory Exam Respiratory Exam: NORMAL BREATHING PATTERN. absent: Rales, Rhonchi, Wheezes - Cardiovascular Exam Cardiovascular Exam: REGULAR RHYTHM, +S1, +S2. absent: Gallop, Rubs, Murmur - GI/Abdominal Exam GI & Abdominal Exam: Soft, Normal Bowel Sounds. absent: Tenderness, Mass, Org anomegaly - Rectal Exam Rectal Exam: Deferred - Extremities Exam Extremities Exam: absent: Calf Tenderness, Pedal Edema Assessment and Plan (1) RLQ abdominal pain Assessment & Plan: Pain has improved slightly. Repeat CT scan and MRI did not show any significant pathology. Recommend trial of NSAIDs and office follow up following discharge. Status: Acute
--- NOTE | 2017-12-31 18:38 | CP.PCM.DIS ---
Provider - Provider Date of Admission: 12/29/17 18:12 Attending physician: Maxim Houser MD Consults: GI: Dr. Yao Medicine: Dr. Mena Time Spent in preparation of Discharge (in minutes): 30 Hospital Course - Lab Results Lab Results: Most Recent Lab Values WBC 5.4 K/uL (4.8-10.8) 12/30/17 08:24 RBC 5.02 Mil/uL (4.40-5.90) 12/30/17 08:24 Hgb 15.0 g/dL (12.0-18.0) 12/30/17 08:24 Hct 42.0 % (35.0-51.0) 12/30/17 08:24 MCV 83.6 fL (80.0-94.0) 12/30/17 08:24 MCH 29.9 pg (27.0-31.0) 12/30/17 08:24 MCHC 35.7 g/dL (33.0-37.0) 12/30/17 08:24 RDW 12.2 % (11.5-14.5) 12/30/17 08:24 Plt Count 220 K/uL (130-400) 12/30/17 08:24 MPV 8.0 fL (7.2-11.7) 12/30/17 08:24 Neut % (Auto) 64.4 % (50.0-75.0) 12/30/17 08:24 Lymph % (Auto) 24.4 % (20.0-40.0) 12/30/17 08:24 Weld % (Auto) 6.6 % (0.0-10.0) 12/30/17 08:24 Eos % (Auto) 3.9 % (0.0-4.0) 12/30/17 08:24 Baso % (Auto) 0.7 % (0.0-2.0) 12/30/17 08:24 Neut # (Auto) 3.5 K/uL (1.8-7.0) 12/30/17 08:24 Lymph # (Auto) 1.3 K/uL (1.0-4.3) 12/30/17 08:24 Weld # (Auto) 0.4 K/uL (0.0-0.8) 12/30/17 08:24 Eos # (Auto) 0.2 K/uL (0.0-0.7) 12/30/17 08:24 Baso # (Auto) 0.0 K/uL (0.0-0.2) 12/30/17 08:24 PT 11.2 SECONDS (9.7-12.2) 12/29/17 14:20 INR 1.0 12/29/17 14:20 APTT 33 SECONDS (21-34) 12/29/17 14:20 Sodium 139 mmol/L (132-148) 12/29/17 14:20 Potassium 4.2 mmol/L (3.6-5.2) 12/29/17 14:20 Chloride 102 mmol/L (98-107) 12/29/17 14:20 Carbon Dioxide 29 mmol/L (22-30) 12/29/17 14:20 Anion Gap 12 (10-20) 12/29/17 14:20 BUN 21 mg/dL (9-20) H 12/29/17 14:20 Creatinine 1.0 mg/dL (0.8-1.5) 12/29/17 14:20 Est GFR ( Amer) > 60 12/29/17 14:20 Est GFR (Non-Af Amer) > 60 12/29/17 14:20 Random Glucose 100 mg/dL (75-110) 12/29/17 14:20 Calcium 8.7 mg/dl (8.6-10.4) 12/29/17 14:20 Total Bilirubin 0.8 mg/dL (0.2-1.3) 12/29/17 14:20 AST 23 U/L (17-59) 12/29/17 14:20 ALT 22 U/L (21-72) 12/29/17 14:20 Alkaline Phosphatase 59 U/L (38-126) 12/29/17 14:20 Total Protein 7.0 g/dL (6.3-8.3) 12/29/17 14:20 Albumin 4.4 g/dL (3.5-5.0) 12/29/17 14:20 Globulin 2.6 gm/dL (2.2-3.9) 12/29/17 14:20 Albumin/Globulin Ratio 1.7 (1.0-2.1) 12/29/17 14:20 Lipase 64 U/L (23-300) 12/29/17 14:20 Urine Color Yellow (YELLOW) 12/29/17 14:17 Urine Clarity Hazy (Clear) 12/29/17 14:17 Urine pH 7.0 (5.0-8.0) 12/29/17 14:17 Ur Specific Elbert 1.010 (1.003-1.030) 12/29/17 14:17 Urine Protein 1+ mg/dL (NEGATIVE) H 12/29/17 14:17 Urine Glucose (UA) Normal mg/dL (Normal) 12/29/17 14:17 Urine Ketones Negative mg/dL (NEGATIVE) 12/29/17 14:17 Urine Blood Negative (NEGATIVE) 12/29/17 14:17 Urine Nitrate Negative (NEGATIVE) 12/29/17 14:17 Urine Bilirubin Negative (NEGATIVE) 12/29/17 14:17 Urine Urobilinogen Normal mg/dL (0.2-1.0) 12/29/17 14:17 Ur Leukocyte Esterase Neg Tal/uL (Negative) 12/29/17 14:17 Urine WBC (Auto) 1 /hpf (0-5) 12/29/17 14:17 Urine RBC (Auto) 2 /hpf (0-3) 12/29/17 14:17 Ur Squamous Epith Cells < 1 /hpf (0-5) 12/29/17 14:17 Urine Bacteria Rare (<OCC) 12/29/17 14:17 - Hospital Course Hospital Course: 47 y/o male with PMHx of GERD and migraines presented to the ED on 12/29/17 with RLQ pain that started the day prior. Pt had tenderness and nausea but denied fevers, chills, headaches, chest pain, SOB, constipation, diarrhea, lower leg edema, bloody stools. CT: appendix is not identified. No secondary signs of acute appendicitis identified. Moderate constipation. Unlikely appedicitis with Grace Score of 3. Pt admitted for rule out appendicitis. On 12/31/17, the CT was repeated with PO & IV contrast and the appendix was within normal limits of caliber. No secondary signs of acute appendicitis. Diverticulosis. MRI Pelvis was ordered by GI which showed sigmoid diverticulosis but no diverticulitis. On 12/31/17, pt requesting to go home. He is tolerating regular diet, ambulating. He was discharged home with prescription for Levaquin and Flagyl to follow up with Dr. Houser in his office Discharge Exam - Head Exam Head Exam: ATRAUMATIC, NORMOCEPHALIC - Respiratory Exam Respiratory Exam: NORMAL BREATHING PATTERN. absent: Prolonged Expiratory Phase - Cardiovascular Exam Cardiovascular Exam: +S1, +S2 - GI/Abdominal Exam GI & Abdominal Exam: Soft. absent: Distended, Firm, Guarding, Mass, Rebound, Rigid - Neurological Exam Neurological exam: Alert, CN II-XII Intact, Oriented x3 - Psychiatric Exam Psychiatric exam: Normal Affect, Normal Mood - Skin Skin Exam: Normal Color, Warm Discharge Plan - Follow Up Plan Condition: STABLE Disposition: HOME/ ROUTINE Patient education suggested?: Yes Instructions: Metronidazole (Systemic), Acute Abdominal Pain (DC) Referrals: Maxim Houser MD [Staff Provider] -
--- NOTE | 2017-12-31 21:21 | CP.PCM.PN ---
Subjective - Subjective Subjective: dictated Objective - Vital Signs/Intake and Output Vital Signs (last 24 hours): Temp Pulse Resp BP Pulse Ox 98.2 F 75 20 106/70 95 12/31/17 16:00 12/31/17 16:00 12/31/17 16:00 12/31/17 16:00 12/31/17 16:00 Intake and Output: 12/31/17 01/01/18 18:59 06:59 Intake Total 650 Balance 650 - Labs Labs: 12/30/17 08:24 12/29/17 14:20 PT 11.2 SECONDS (9.7-12.2) 12/29/17 14:20 INR 1.0 12/29/17 14:20 APTT 33 SECONDS (21-34) 12/29/17 14:20
--- NOTE | 2018-01-01 02:41 | PN ---
DATE: 12/31/2017 SUBJECTIVE: The patient, Manoj, was discharged. He was seen by GI. The patient has been followed up Dr. Yao. No fevers. No chills. No nausea, vomiting. PHYSICAL EXAMINATION: VITAL SIGNS: Blood pressure 106/70, pulse 75, respiratory rate 20, temperature 98.2. LUNGS: Clear. CARDIOVASCULAR SYSTEM: S1, S2 regular. ABDOMEN: Soft and nontender. Abdominal pain most likely musculoskeletal in nature, less likely to be any GI malignancy. The patient will be followed by Dr. Yao, and he will be seen Slim Mena MD
== END 2017-12-31 19:11 | disposition home or self-care (01) ==
LOC: C.ER 12:50 → C.9E 18:12 → C.3T 19:22
PROVIDERS: ADMIT Surgery Surgical Critical Care; ATTEND Surgery Surgical Critical Care
DX: R10.31 Right lower quadrant pain (principal); K21.9 Gastro-esophageal reflux disease without esophagitis; K59.00 Constipation, unspecified; K57.30 Diverticulosis of large intestine without perforation or abscess without bleeding; J98.11 Atelectasis; Z80.0 Family history of malignant neoplasm of digestive organs
CPT/HCPCS: 36415; 72197; 74177; 80053; 81001; 83690; 85025; 85610; 85730; 96360; 99285; C9113; G0378; J1644; J2543; J7030; Q9966; Q9967

== ENCOUNTER 2018-05-20 10:39 | Outpatient (CLI) | payer BC | END 2018-05-20 10:40 | disposition home or self-care (01) | LOC: C.RADIC 10:39 | DX: R07.89 Other chest pain (principal); R07.81 Pleurodynia ==